=== PATIENT | female | born 1985 ===

== ENCOUNTER 2021-07-14 21:18 | Emergency (ER) | payer SELFPAY ==
[2021-07-15 00:10] VITALS: BP 144/66
[2021-07-15] MEDS ORDERED: ONDANSETRON 4 MG/2 ML INJ IV ONE (00:28)
[2021-07-15] MEDS ORDERED: SODIUM CHLORIDE 0.9% 1000 ML 1,000 ML IV ONE (00:28)
[2021-07-15] MEDS ORDERED: MORPHINE 4 MG/1 ML INJ IV ONE (00:28)
[2021-07-15 01:45] LABS: Basophils % (Auto) 0.4 % (0.0-1.8); Eosinophils # (Auto) 0.1 K/mm3 (0.0-0.4); Eosinophils % (Auto) 1.1 % (0.0-4.3); Hematocrit 42.8 % (30.3-42.9); Hemoglobin 13.5 gm/dl (10.1-14.3); Lymphocytes # (Auto) 2.9 K/mm3 (1.2-5.4); Lymphocytes % (Auto) 29.5 % (13.4-35.0); Mean Corpuscular HGB Conc 32 % (30-34); Mean Corpuscular Volume 85 fl (79-97); Monocytes # (Auto) 0.5 K/mm3 (0.0-0.8); Monocytes % (Auto) 5.4 % (0.0-7.3); Platelet Count 272 K/mm3 (140-440); Red Blood Count 5.03 M/mm3 (3.65-5.03)
[2021-07-15 01:53] LABS: Alanine Aminotransferase 6 units/L (7-56); Albumin 4.6 g/dL (3.9-5); Blood Urea Nitrogen 7 mg/dL (7-17); Calcium 8.8 mg/dL (8.4-10.2); Hemolysis Index 8
[2021-07-15 02:04] LABS: BUN/Creatinine Ratio 12
--- NOTE | 2021-07-15 03:08 | Cat Scan Report ---
CT abdomen pelvis w con INDICATION / CLINICAL INFORMATION: Pt complains of R.L.Q. abdominal pain. TECHNIQUE: Axial CT imaging of abdomen and pelvis was obtained with 100 mL Omnipaque 350 IV contrast. Coronal an d sagittal reformatted imaging obtained and reviewed. All CT scans at this location are performed us ing CT dose reduction for ALARA by means of automated exposure control. COMPARISON: None available. FINDINGS: CT abdomen with IV contrast demonstrates normal appearance of the liver, spleen, pancreas, kidneys, a nd adrenal glands. Gallbladder is unremarkable. No biliary dilatation. Abdominal aorta is normal. CT pelvis with contrast demonstrates normal appearance of the appendix. No pelvic mass, free fluid, o r focal inflammatory changes noted. Incidentally noted is a 2.2 cm left ovarian cyst. Moderate amount retained stool is present throughout the colon. Otherwise, GI tract is unremarkable. Visualized lung bases are clear. No significant acute osseous abnormality. IMPRESSION: 1. No acute finding within the abdomen or pelvis. No etiology is identified to account for the compla int of right lower quadrant pain. 2. Moderate amount retained stool is present throughout the colon. 3. Incidental finding of 2.2 cm left ovarian cyst. Signer Name: Rhonda Corrales MD Signed: 07/15/2021 3:03 AM Workstation Name: [id number]
[2021-07-15 03:24] LABS: Bilirubin,Urine NEG (Negative); Blood,Urine NEG (Negative); Color,Urine Yellow (Yellow); Protein,Urine <15 mg/dL mg/dL (Negative); Urobilinogen,Urine < 2.0 mg/dL (<2.0)
[2021-07-15] MEDS ORDERED: MORPHINE 4 MG/1 ML INJ ONE (03:31)
[2021-07-15] MEDS ORDERED: ONDANSETRON 4 MG/2 ML INJ ONE (03:31)
[2021-07-15] MEDS ORDERED: SODIUM CHLORIDE 0.9% 1000 ML 1,000 ML ONE (03:31)
[2021-07-15 04:07] LABS: RBC,Urine < 1.0 /HPF (0.0-6.0); WBC,Urine < 1.0 /HPF (0.0-6.0)
--- NOTE | 2021-07-15 04:23 | Emergency Department Report ---
ED Abdominal Pain HPI - General Chief Complaint: Abdominal Pain Stated Complaint: ABD PAIN Source: patient, family Mode of arrival: Ambulatory Limitations: Language Barrier - History of Present Illness Initial Comments: Patient is a A0 36-year-old female with no past medical history presented to the ED with complaint of acute onset persistent right flank pain that radiates to the right lower quadrant area for the last 3 days worse in the last 8 hours. Patient also complains of nausea and vomiting. Patient denies diarrhea, dysuria, urinary frequency and urgency, vaginal bleeding, vaginal discharge, traumatic injury or heavy lifting, low back pain, chest pain or shortness of breath, fever and chills. MD Complaint: abdominal pain (RLQ pain), flank pain (right flank pain), other (nausea and vomiting) -: Sudden, days(s) (3) Location: RLQ, R flank Radiation: RLQ, R flank Migration to: RLQ, R flank Severity scale (0 -10): 8 Quality: cramping, sharp Consistency: constant Improves With: nothing Worsens With: nothing Associated Symptoms: denies other symptoms, nausea, vomiting. denies: diarrhea, fever, chills, constipation, hematemesis, melena, hematuria, anorexia, syncope - Related Data LMP Date: 07/06/21 Previous Rx's Medication Instructions Recorded Last Taken Type Dicyclomine [Bentyl] 20 mg PO Q6H PRN #24 tablet 07/15/21 Unknown Rx Docusate Sodium [Dok] 100 mg PO DAILY #30 tab 07/15/21 Unknown Rx Ketorolac [Toradol] 10 mg PO Q8H PRN #15 tab 07/15/21 Unknown Rx Magnesium Citrate 296 ml PO ONCE #1 bottle 07/15/21 Unknown Rx Ondansetron [Zofran Odt] 4 mg PO Q8HR PRN #20 tab.rapdis 07/15/21 Unknown Rx Allergies Allergy/AdvReac Type Severity Reaction Status Date / Time No Known Allergies Allergy Verified 07/15/21 00:03 ED Review of Systems ROS: Stated complaint: ABD PAIN Other details as noted in HPI Constitutional: denies: chills, fever Eyes: denies: eye pain, eye discharge, vision change ENT: denies: ear pain, throat pain Respiratory: denies: cough, shortness of breath, wheezing Cardiovascular: denies: chest pain, palpitations Endocrine: no symptoms reported Gastrointestinal: abdominal pain (RLQ and right flank), nausea, vomiting. denies: diarrhea Genitourinary: denies: urgency, dysuria, discharge Musculoskeletal: denies: back pain, joint swelling, arthralgia Skin: denies: rash, lesions Neurological: denies: headache, weakness, paresthesias Psychiatric: denies: anxiety, depression Hematological/Lymphatic: denies: easy bleeding, easy bruising ED Past Medical Hx - Past Medical History Previous Medical History?: No - Surgical History Past Surgical History?: No - Medications Home Medications: Home Medications Medication Instructions Recorded Confirmed Last Taken Type Dicyclomine [Bentyl] 20 mg PO Q6H PRN #24 tablet 07/15/21 Unknown Rx Docusate Sodium [Dok] 100 mg PO DAILY #30 tab 07/15/21 Unknown Rx Ketorolac [Toradol] 10 mg PO Q8H PRN #15 tab 07/15/21 Unknown Rx Magnesium Citrate 296 ml PO ONCE #1 bottle 07/15/21 Unknown Rx Ondansetron [Zofran Odt] 4 mg PO Q8HR PRN #20 tab.rapdis 07/15/21 Unknown Rx ED Physical Exam - General Limitations: Language Barrier General appearance: alert, in no apparent distress - Head Head exam: Present: atraumatic, normocephalic, normal inspection - Eye Eye exam: Present: normal appearance, PERRL, EOMI Pupils: Present: normal accommodation - ENT ENT exam: Present: normal exam, normal orophraynx, mucous membranes moist, TM's normal bilaterally, normal external ear exam - Neck Neck exam: Present: normal inspection, full ROM. Absent: tenderness - Respiratory Respiratory exam: Present: normal lung sounds bilaterally. Absent: respiratory distress, wheezes, rales, stridor, chest wall tenderness, decreased breath sounds, prolonged expiratory, other - Cardiovascular Cardiovascular Exam: Present: regular rate, normal rhythm, normal heart sounds. Absent: systolic murmur, diastolic murmur, rubs, gallop - GI/Abdominal GI/Abdominal exam: Present: soft, tenderness (Palpable right flank and right lower quadrant tenderness), normal bowel sounds. Absent: guarding, rebound, rigid, hyperactive bowel sounds, hypoactive bowel sounds - Bi-manual exam: Present: other (Pelvic exam deferred) - Extremities Exam Extremities exam: Present: normal inspection, full ROM, normal capillary refill - Back Exam Back exam: Present: normal inspection, full ROM. Absent: tenderness, CVA tenderness (R), CVA tenderness (L), muscle spasm, paraspinal tenderness, vertebral tenderness - Neurological Exam Neurological exam: Present: alert, oriented X3, CN II-XII intact, normal gait, reflexes normal - Psychiatric Psychiatric exam: Present: normal affect, normal mood - Skin Skin exam: Present: warm, dry, intact, normal color. Absent: rash ED Course Vital Signs 07/15/21 07/15/21 00:03 03:37 Temperature 98.4 F Pulse Rate 89 Respiratory 17 14 Rate Blood Pressure 144/66 [Right] O2 Sat by Pulse 100 Oximetry ED Medical Decision Making - Lab Data Result diagrams: 07/15/21 01:07 07/15/21 01:07 - Radiology Data Radiology results: report reviewed, [place] [address] Cat Scan Report Signed Patient: ARTEM WERNER MR#: [id number] : 1985 Acct:[id number] Age/Sex: 36 / F ADM Date: 07/14/21 Loc: ED Attending Dr: Ordering Physician: NAEL MIN Date of Service: 07/15/21 Procedure(s): CT abdomen pelvis w con Accession Number(s): [id number] cc: NAEL MIN CT abdomen pelvis w con INDICATION / CLINICAL INFORMATION: Pt complains of R.L.Q. abdominal pain. TECHNIQUE: Axial CT imaging of abdomen and pelvis was obtained with 100 mL Omnipaque 350 IV contrast. Coronal and sagittal reformatted imaging obtained and reviewed. All CT scans at this location are performed using CT dose reduction for ALARA by means of automated exposure control. COMPARISON: None available. FINDINGS: CT abdomen with IV contrast demonstrates normal appearance of the liver, spleen, pancreas, kidneys, and adrenal glands. Gallbladder is unremarkable. No biliary dilatation. Abdominal aorta is normal. CT pelvis with contrast demonstrates normal appearance of the appendix. No pelvic mass, free fluid, or focal inflammatory changes noted. Incidentally noted is a 2.2 cm left ovarian cyst. Moderate amount retained stool is present throughout the colon. Otherwise, GI tract is unremarkable. Visualized lung bases are clear. No significant acute osseous abnormality. IMPRESSION: 1. No acute finding within the abdomen or pelvis. No etiology is identified to account for the complaint of right lower quadrant pain. 2. Moderate amount retained stool is present throughout the colon. 3. Incidental finding of 2.2 cm left ovarian cyst. Signer Name: Rhonda Corrales MD Signed: 07/15/2021 3:03 AM Workstation Name: [id number] Transcribed By: Dictated By: Rhonda Corrales MD Electronically Authenticated By: Rhonda Corrales MD Signed Date/Time: 07/15/21302 DD/ 7 TD/TT: Print Cancel - Medical Decision Making This is a A0 36-year-old female with no past medical history presented to the ED with complaint of acute onset persistent right flank pain that radiates to the right lower quadrant area for the last 3 days worse in the last 8 hours. Patient also complains of nausea and vomiting. In the ED, patient is alert and oriented x3 and is not in any distress. Patient is hemodynamically stable. Patient was treated for pain in the ED and also given antiemetics and normal saline 1 L IV bolus x1. Lab test results were reviewed and are all nonactionable. Abdomen pelvis CT scan with contrast showed no acute finding within the abdomen or pelvis. No etiology is identified to account for the complaint of right lower quadrant pain. In addition, there was moderate amount retained stool is present throughout the colon, and an incidental finding of 2.2 cm left ovarian cyst. On reevaluation, patient's pain is well controlled medication. Patient was discharged home on medications and advised to follow-up with her primary care physician in 5 to 7 days for reevaluation. Patient advised return to the ED immediately if symptoms get worse. - Differential Diagnosis Appendicitis; pyelonephritis;, UTI; ; ovarian cyst; colitis Critical care attestation.: If time is entered above; I have spent that time in minutes in the direct care of this critically ill patient, excluding procedure time. ED Disposition Clinical Impression: Acute abdominal pain in right lower quadrant, Nausea and vomiting in adult patient, Cyst of left ovary Constipation Qualifiers: Constipation type: other constipation type Qualified Code(s): K59.09 - Other constipation Disposition: 01 HOME / SELF CARE / HOMELESS Is pt being admited?: No Does the pt Need Aspirin: No Condition: Stable Instructions: Abdominal Pain (ED), Abdominal Pain, Adult, Hotn-de-Lnka, Nausea and Vomiting, Adult, [id number], Constipation, Adult, [id number], Ovarian Cyst, [id number] Additional Instructions: Todos los informes de imgenes fueron revisados ??y no mostraron anormalidades agudas en el abdomen y la pelvis excepto por estreimiento y hallazgo incidental de quiste de ovario zaria. Todos los resultados de las pruebas de laboratorio fueron revisados ??y no son procesables. Por lo tanto, tome los medicamentos con alimentos, norma muchos lquidos y libertad un seguimiento con carpenter mdico de atencin primaria en 5 a 7 shelton para randa reevaluacin. Regrese al servicio de urgencias inmediatamente si los sntomas empeoran. Prescriptions: Dicyclomine [Bentyl] 20 mg PO Q6H PRN #24 tablet PRN Reason: abdominal pain Docusate Sodium [Dok] 100 mg PO DAILY #30 tab Magnesium Citrate 296 ml PO ONCE #1 bottle Ketorolac [Toradol] 10 mg PO Q8H PRN #15 tab PRN Reason: Pain Ondansetron [Zofran Odt] 4 mg PO Q8HR PRN #20 tab.rapdis PRN Reason: Nausea Referrals: [facility] [Provider Group] - 3-5 Days Time of Disposition: 04:25 Print Language: BARBAD[place]
== END 2021-07-15 05:22 | disposition home or self-care (01) ==
LOC: ED 21:18
DX: R10.31 Right lower quadrant pain (principal); R11.2 Nausea with vomiting, unspecified; N83.202 Unspecified ovarian cyst, left side; K59.00 Constipation, unspecified
CPT/HCPCS: 36415; 74177; 80053; 81001; 83690; 84703; 85025; 96361; 96374; 96375; 99284; J2270; J2405; J7030; Q9967; Q0162